=== PATIENT | male | born 1955 | race Caucasian/White ===

== ENCOUNTER 2019-11-17 06:28 | Inpatient (IN) ==
[~2019-11-17 06:28] MED LIST: Bacitracin 50,000 UNIT, Polymyxin B Sulfate 500,000 UNIT, Sodium Chloride IRRigation 1,... IR ONE
[2019-11-17] MEDS ORDERED: CeFAZolin Syr 2,000MG/20 ML 2,000 MG/20 ML SYRINGE IVPB ONE (06:46)
[2019-11-17] MEDS ORDERED: *HR* Propofol 200 MG/20 ML VIAL IVP ONE (06:48)
[2019-11-17] MEDS ORDERED: *HR* Remifentanil 1 MG VIAL IVP ONE (06:48)
[2019-11-17] MEDS ORDERED: *HR* FentaNYL (PF) 100 MCG/2 ML VIAL ONE (06:48)
[2019-11-17] MEDS ORDERED: *HR* Midazolam HCl 2 MG/2 ML VIAL ONE (06:48)
[2019-11-17] MEDS ORDERED: Lidocaine -MPF 2% 2 ML VIAL ONE (06:49)
[2019-11-17] MEDS ORDERED: Ondansetron 4 MG/2 ML VIAL ONE (06:49)
[2019-11-17] MEDS ORDERED: *HR* Phenylephrine 10 MG/ML VIAL ONE (06:49)
[2019-11-17] MEDS ORDERED: *HR* Succinylcholine 200 MG/10 ML VIAL IVP ONE (06:49)
[2019-11-17] MEDS ORDERED: Dexamethasone 4 MG/ML VIAL ONE (06:49)
[2019-11-17] MEDS ORDERED: Lidocaine HCL 4 ML Topical Solution (Laryng-O-Jet Kit Sterile Pak) TP ONE (06:49)
[2019-11-17] MEDS ORDERED: *HR* Rocuronium Bromide 50 MG/5 ML VIAL ONE (06:49)
[2019-11-17] MEDS ORDERED: Ringers Solution, Lactated 1,000 ML IVC SCH (07:00)
[2019-11-17] MEDS ORDERED: *HR* HYDROmorphone PF 0.5 MG/0.5 ML SYRINGE IVP PRN (07:47)
[2019-11-17] MEDS ORDERED: *HR* Promethazine 25 MG/ML VIAL IVP PRN (07:47)
[2019-11-17] MEDS ORDERED: Ondansetron 4 MG/2 ML VIAL IVP ONE (07:47)
[2019-11-17] MEDS ORDERED: *HR* OxyCODONE Immed Rel 5 MG TABLET PO PRN (07:47)
[2019-11-17] MEDS ORDERED: Acetaminophen IV 1,000 MG/100 ML INFUS..BTL ONE (08:00)
[2019-11-17] MEDS ORDERED: EPHEDrine 50 MG/ML VIAL ONE (08:25)
[2019-11-17] MEDS ORDERED: *HR* Vasopressin 20 UNIT/ML VIAL ONE (09:19)
[2019-11-17] MEDS ORDERED: *HR* HYDROMORPHONE 2 MG/ML VIAL ONE (11:09)
[2019-11-17] MEDS ORDERED: Naloxone 0.4 MG/ML INJ IVP PRN (13:53)
[2019-11-17] MEDS ORDERED: Ondansetron 4 MG/2 ML VIAL IVP PRN (13:53)
[2019-11-17] MEDS ORDERED: NON-FORMULARY MEDICATION 1 EACH EACH (Acetaminophen [Tylenol Arthritis] 1,300 MG) PO PRN (13:53)
[2019-11-17] MEDS ORDERED: Acetaminophen 325 MG TABLET PO PRN (13:53)
[2019-11-17] MEDS ORDERED: NON-FORMULARY MEDICATION 1 EACH EACH (Testosterone Cypionate [Depo-Testosterone] 100 MG) IM SCH (13:53)
[2019-11-17] MEDS: Gabapentin 300 MG CAPSULE PO SCH ×2 (14:30→20:09)
[2019-11-17] MEDS: *HR* OxyCODONE Immed Rel 5 MG TABLET PO PRN ×3 (14:30→23:01)
[2019-11-17] MEDS: Ringers Solution, Lactated 1,000 ML IVC SCH (14:38)
[2019-11-17] MEDS: ceFAZolin 2,000 MG in 0.9 % Sodium Chloride 100 ML IVPB SCH ×2 (16:04→23:02)
[2019-11-17] MEDS: Cholecalciferol (D-3) 1,000 UNIT (25MCG) TABLET PO SCH (20:08)
[2019-11-18] MEDS: Ringers Solution, Lactated 1,000 ML IVC SCH (03:05)
[2019-11-18] MEDS: *HR* OxyCODONE Immed Rel 5 MG TABLET PO PRN ×4 (05:39→18:24)
[2019-11-18] MEDS ORDERED: Dexamethasone 4 MG/ML VIAL ONE (06:55)
[2019-11-18] MEDS ORDERED: Ondansetron 4 MG/2 ML VIAL ONE (06:55)
[2019-11-18] MEDS ORDERED: Lidocaine -MPF 2% 2 ML VIAL ONE (06:55)
[2019-11-18] MEDS ORDERED: *HR* FentaNYL (PF) 100 MCG/2 ML VIAL ONE (06:56)
[2019-11-18] MEDS ORDERED: *HR* Midazolam HCl 2 MG/2 ML VIAL ONE (06:57)
[2019-11-18] MEDS ORDERED: *HR* Propofol 200 MG/20 ML VIAL IVP ONE (06:57)
[2019-11-18] MEDS ORDERED: NON-FORMULARY MEDICATION 1 EACH EACH (Turmeric Root Extract [Turmeric] 500 MG) PO SCH (09:00)
[2019-11-18] MEDS: Aspirin Enteric Coated 81 MG Tablet PO SCH (09:25)
[2019-11-18] MEDS: Cholecalciferol (D-3) 1,000 UNIT (25MCG) TABLET PO SCH ×2 (09:26→20:02)
[2019-11-18] MEDS: Gabapentin 300 MG CAPSULE PO SCH ×3 (09:26→20:02)
[2019-11-18] MEDS: Artificial Tears SOLN 15 ML BOTTLE OP SCH (09:33)
[2019-11-19] MEDS: *HR* OxyCODONE Immed Rel 5 MG TABLET PO PRN ×3 (05:28→18:56)
[2019-11-19] MEDS: Aspirin Enteric Coated 81 MG Tablet PO SCH (09:02)
[2019-11-19] MEDS: Cholecalciferol (D-3) 1,000 UNIT (25MCG) TABLET PO SCH ×2 (09:03→20:40)
[2019-11-19] MEDS: Gabapentin 300 MG CAPSULE PO SCH ×3 (09:03→20:40)
[2019-11-19] MEDS: Artificial Tears SOLN 15 ML BOTTLE OP SCH (09:48)
[2019-11-19] MEDS: *HR* HYDROcodone/Acet 5/325 mg TABLET PO PRN ×2 (14:14→23:52)
[2019-11-19] MEDS: Ringers Solution, Lactated 1,000 ML IVC SCH (20:41)
[2019-11-20] MEDS: Ringers Solution, Lactated 1,000 ML IVC SCH (02:32)
[2019-11-20] MEDS: *HR* OxyCODONE Immed Rel 5 MG TABLET PO PRN ×4 (03:57→19:43)
[2019-11-20] MEDS: Aspirin Enteric Coated 81 MG Tablet PO SCH (07:55)
[2019-11-20] MEDS: Gabapentin 300 MG CAPSULE PO SCH ×3 (07:56→19:43)
[2019-11-20] MEDS: Cholecalciferol (D-3) 1,000 UNIT (25MCG) TABLET PO SCH ×2 (07:56→19:44)
[2019-11-20] MEDS: Artificial Tears SOLN 15 ML BOTTLE OP SCH (09:43)
[2019-11-20] MEDS ORDERED: polyethylene glycoL 3350 17 GM POWD.PACK PO PRN (10:03)
[2019-11-20] MEDS ORDERED: polyethylene glycoL 3350 17 GM POWD.PACK PO SCH (10:15)
[2019-11-20] MEDS ORDERED: Bisacodyl 10 MG RECTAL SUPPOSITORY RC ONE (14:51)
[2019-11-20] MEDS: polyethylene glycoL 3350 17 GM POWD.PACK PO SCH (19:43)
[2019-11-21] MEDS: *HR* OxyCODONE Immed Rel 5 MG TABLET PO PRN (05:46)
[2019-11-21 07:07] VITALS: BP 118/72
[2019-11-21] MEDS: polyethylene glycoL 3350 17 GM POWD.PACK PO SCH (07:54)
[2019-11-21] MEDS: Cholecalciferol (D-3) 1,000 UNIT (25MCG) TABLET PO SCH (08:03)
[2019-11-21] MEDS: Aspirin Enteric Coated 81 MG Tablet PO SCH (08:03)
[2019-11-21] MEDS: Gabapentin 300 MG CAPSULE PO SCH (08:03)
[2019-11-21] MEDS ORDERED: polyethylene glycoL 3350 17 GM POWD.PACK PO SCH (09:00)
== END 2019-11-21 09:30 | DRG 454 ==
LOC: SAMDAY 06:28 → 3NENU 13:43
PROVIDERS: ADMIT Orthopaedic Surgery Orthopaedic Surgery of the Spine; ATTEND Orthopaedic Surgery Orthopaedic Surgery of the Spine